=== PATIENT | male | born 1980 | race African-American/Black ===

== ENCOUNTER 2020-02-17 07:00 | Emergency (ER) | payer OTHER ==
--- NOTE | 2020-02-17 07:23 | ER Document Report ---
ED General - General Chief Complaint: Cough Stated Complaint: COUGH Time Seen by Provider: 02/17/20 07:19 Notes: 39-year-old male presents to the emergency department history of cough and fatigue over the past 2-1/2 weeks. He has recently developed diarrhea, loss of taste and smell, worsening body aches and pains. He is a [employer] driver, states that he may have come in contact with someone driving in [place], [place] a few weeks ago. He has no known history of exposure to positive COVID patient. He has had 2 episodes of inability to control diarrhea, awakened with incontinence of stool. Now presents to the emergency department for further evaluation and treatment of his symptom complex. Review of Systems - Review of Systems Notes: Constitutional: Negative for fever. HENT: Negative for sore throat. Eyes: Negative for visual changes. Cardiovascular: Negative for chest pain. Respiratory: + Cough, + shortness of breath . Gastrointestinal: + Diarrhea. Genitourinary: Negative for dysuria. Musculoskeletal: Negative for back pain. Skin: Negative for rash. Neurological: Negative for headaches, weakness or numbness. 10 point ROS negative except as marked above and in HPI. Physical Exam - Vital signs Vitals: Temp 97.6 F 02/17/20 07:13 - Notes Notes: PHYSICAL EXAMINATION: Physical Exam: General: Well-nourished well-developed 39-year-old man in no acute distress HEENT: [place]/AT, pupils equal round and reactive to light, MM moist,nares clear, oropharynx clear, airway patent Neck: supple, no adenopathy, no masses. Good range of motion Lungs: clear, no wheezing, no rales no rhonchi CVS: Regular rate and rhythm no murmur gallop or rub Abdomen: Soft, active, nontender, no masses, no hepatosplenomegaly Ext: No edema, clubbing or cyanosis. Neuro: Alert and responsive, moving all 4 extremities on command, cranial nerves intact, no focal findings Skin: Intact no open lesions, no rash PSYCH: Normal mood, normal affect. Course - Re-evaluation Re-evalutation: 02/17/20 10:48 Patient was seen and evaluated, he is also concerned about possible coronavirus infection. Positive diarrhea and cough with associated fatigue. 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 Chest x-ray, lab findings are all normal. His influenza and strep tests are negative. Patient presents with l cough, diarrhea and body aches. Evaluation for influenza and strep are negative, urinalysis was also noted to be negative. Given this presentation, coronavirus screening test is being performed. I have instructed the patient that he will need to self isolate until the received a report of the test results. The patient acknowledges that he has been tested for COVID-19, and will self isolate at home until he receives results. He is instructed to avoid anti-inflammatory medications. May use Tylenol for fever, a ches and pains. He is also instructed to return to the hospital if his symptoms are worsening or development of shortness of breath. - Vital Signs Vital signs: Temp Pulse Resp BP Pulse Ox 97.6 F 79 16 115/78 98 02/17/20 07:22 02/17/20 07:22 02/17/20 10:01 02/17/20 10:01 02/17/20 10:01 - Laboratory Result Diagrams: 02/17/20 07:06 02/17/20 07:06 Laboratory results interpreted by me: 02/17/20 02/17/20 07:06 09:40 WBC 3.8 L Lymph % (Auto) 57.5 H Absolute Neuts (auto) 1.3 L Seg Neutrophils % 34.0 L Urine Urobilinogen 2.0 H - Diagnostic Test Radiology reviewed: Image reviewed, Reports reviewed - Chest x-ray: No acute infiltrate or effusion. - EKG Interpretation by Ar EKG shows normal: Sinus rhythm - 77, no acute ST or T wave abnormalities seen: Interpretation normal electrocardiogram. Discharge - Discharge Clinical Impression: Suspected 2019 novel coronavirus infection Condition: Good Disposition: HOME, SELF-CARE Additional Instructions: You were seen with fever and upper respiratory symptoms.Testing for influenza and strep were negative, chest x-ray is clear. Given the pandemic and coronavirus concerns, your were made a person of interest and a swab was collected and will be sent for COVID-19 evaluation. You will need to self quarantine until you get the results. Avoid anti-inflammatory medications, you may use Tylenol for fever, aches and pains. Please return to the hospital if her symptoms are worsening or development of shortness of breath. HOME CARE INSTRUCTIONS & INFORMATION: Thank you for choosing us for your medical needs. We hope you're satisfied with the care you received. After you leave, you must properly care for your problem and, at the same time, observe its progress. Any condition can change. Some illnesses can change rapidly over hours or days. If your condition worsens, return to the Emergency Department or see your physician promptly. ABOUT YOUR X-RAYS AND EKG'S: If you had an EKG or X-rays taken, they have been read by the Emergency Physician. The X-rays and EKG's will also be read by a Radiologist or Business Transformation Consultant within 24 hours. If discrepancies are noted, you will be notified by telephone. Please be certain the ED has a correct telephone number & address where you can be reached. Also, realize that some fractures or abnormalities do not show up on initial X-rays. If your symptoms continue, see your physician. ABOUT YOUR LABORATORY TEST: If you had laboratory tests, the results have been reviewed by the Emergency Physician. Some test results (for example cultures) may not be available for several days. You will be contacted if any test result shows you need additional treatment. Please be certain the ED has a correct [facility] number and address where you can be reached. ABOUT YOUR MEDICATIONS: You will receive instructions on how to take your medicine on the prescription label you receive. Additional information may be provided by the Pharmacy. If you have questions afterwards, call the ED for clarification or further instructions. Some prescribed medications may cause drowsiness. Do not perform tasks such as driving a car or operating machinery without consulting your Pharmacist. If you feel you need a refill of pain medication, your condition will need re-evaluation. Please do not call for a refill of any medication. ABOUT YOUR SIGNATURE: Signature of this document acknowledges to followin. Understanding that you received emergency treatment and that you may be released before al medical problems are known or treated. Please be certain the ED has a correct phone number & address where you can be reached. 2. Acknowledgement that you will arrange for follow-up care as recommended. 3. Authorization for the Emergency Physician to provide information to your follow-up Physician in order to maximize your care. AT ANY TIME, IF YOUR SYMPTOMS CHANGE SIGNIFICANTLY OR WORSEN OR YOU DEVELOP NEW SYMPTOMS, RETURN TO THE EMERGENCY DEPARTMENT IMMEDIATELY FOR RE-EVALUATION. OUR GOAL IS TO PROVIDE EXCELLENT MEDICAL CARE! WE HOPE THAT WE HAVE MET YOUR EXPECTATIONS DURING YOUR EMERGENCY DEPARTMENT VISIT AND THAT YOU FEEL YOU HAVE RECEIVED EXCELLENT CARE!
[2020-02-17 07:41] LABS: ABSOLUTE EOSINOPHILS # (AUTO) 0.1 10^3/uL (0.0-0.6); ABSOLUTE LYMPHOCYTES (AUTO) 2.2 10^3/uL (0.5-4.7); ABSOLUTE MONOCYTES (AUTO) 0.2 10^3/uL (0.1-1.4); ABSOLUTE NEUT (AUTO) 1.3 10^3/uL (1.7-8.2); BASOPHILS % (AUTO) 0.5 % (0-2); EOSINOPHILS % (AUTO) 1.8 % (0-6); HEMATOCRIT 46.5 % (37.9-51.0); HEMOGLOBIN 16.6 g/dL (13.5-17.0); LYMPHOCYTES % (AUTO) 57.5 % (13-45); MEAN CORPUSCULAR HEMOGLOBIN 30.6 pg (27.0-33.4); MEAN CORPUSCULAR HGB CONC 35.7 g/dL (32.0-36.0); MEAN CORPUSCULAR VOLUME 86 fl (80-97); MONOCYTES % (AUTO) 6.2 % (3-13); PLATELET COUNT 289 10^3/uL (150-450); RED BLOOD COUNT 5.44 10^6/uL (4.35-5.55); RED CELL DISTRIBUTION WIDTH 13.3 % (11.5-14.0); TOTAL CELLS COUNTED % (AUTO) 100 %; WHITE BLOOD COUNT 3.8 10^3/uL (4.0-10.5)
[2020-02-17 08:00] LABS: ALBUMIN 4.7 g/dL (3.5-5.0); ALKALINE PHOSPHATASE 79 U/L (38-126); ANION GAP 8 (5-19); ASPARTATE AMINO TRANSFERASE 32 U/L (17-59); BILIRUBIN,TOTAL 0.8 mg/dL (0.2-1.3); BLOOD UREA NITROGEN 16 mg/dL (7-20); CALCIUM 9.5 mg/dL (8.4-10.2); CARBON DIOXIDE 30 mmol/L (22-30); CHLORIDE 100 mmol/L (98-107); GLUCOSE 105 mg/dL (75-110); POTASSIUM 4.2 mmol/L (3.6-5.0); TOTAL PROTEIN 8.1 g/dL (6.3-8.2)
--- NOTE | 2020-02-17 08:02 | RADIOLOGY REPORT (SQ) ---
CHEST 1 VIEW on 02/17/2020 at 7:34 AM CLINICAL INDICATION: Cough, shortness of breath COMPARISON: None FINDINGS: The lungs are clear. Cardiac, hilar and mediastinal contours are within normal limits. Pulmonary vascularity is within normal limits. No bony abnormality is noted. IMPRESSION: No active disease.
[2020-02-17 10:05] LABS: APPEARANCE,URINE CLEAR; BILIRUBIN,URINE NEGATIVE (NEGATIVE); COLOR,URINE YELLOW; GLUCOSE, URINE NEGATIVE (NEGATIVE); KETONES,URINE NEGATIVE (NEGATIVE); PROTEIN,URINE NEGATIVE (NEGATIVE); URINE SPECIFIC GRAVITY 1.016
[2020-02-17 10:19] LABS: A TYPE INFLUENZA AG NEGATIVE (NEGATIVE); B INFLUENZA AG NEGATIVE (NEGATIVE)
[2020-02-17 11:01] VITALS: BP 115/78
--- NOTE | 2020-02-18 00:02 | EKG REPORT ---
SEVERITY:- NORMAL ECG - SINUS RHYTHM : Confirmed by: Fantasma East 18-Feb-2020 00:01:32
== END 2020-02-17 11:42 | disposition home or self-care (01) ==
LOC: ER 07:00
DX: R05 Cough (principal); R53.83 Other fatigue; R19.7 Diarrhea, unspecified; R43.8 Other disturbances of smell and taste; M79.10 Myalgia, unspecified site; R15.9 Full incontinence of feces; R06.02 Shortness of breath; Z20.828 Contact with and (suspected) exposure to other viral communicable diseases
CPT/HCPCS: 36415; 71045; 80053; 81001; 85025; 87070; 87635; 87804; 87880; 93005; 93010; 99284

== ENCOUNTER 2020-07-28 09:34 | Emergency (ER) | payer OTHER, MEDICAID ==
[2020-07-28] MEDS ORDERED: PREDNISONE 20 MG TABLET PO ONE (10:53)
[2020-07-28] MEDS ORDERED: LOPERAMIDE HCL 2 MG CAPSULE PO ONE (10:53)
[2020-07-28] MEDS ORDERED: BENZONATATE 100 MG CAPSULE PO ONE (10:53)
[2020-07-28 11:41] LABS: A TYPE INFLUENZA AG NEGATIVE (NEGATIVE); B INFLUENZA AG NEGATIVE (NEGATIVE)
--- NOTE | 2020-07-28 11:52 | RADIOLOGY REPORT (SQ) ---
EXAM DESCRIPTION: CHEST SINGLE VIEW IMAGES COMPLETED DATE/TIME: 07/28/2020 11:45 am REASON FOR STUDY: fever/cough COMPARISON: 02/17/2020 EXAM PARAMETERS: NUMBER OF VIEWS: One view. TECHNIQUE: Single frontal radiographic view of the chest acquired. RADIATION DOSE: NA LIMITATIONS: None. FINDINGS: LUNGS AND PLEURA: No opacities, masses or pneumothorax. No pleural effusion. MEDIASTINUM AND HILAR STRUCTURES: No masses. Contour normal. HEART AND VASCULAR STRUCTURES: Heart normal in size. Normal vasculature. BONES: No acute findings. HARDWARE: None in the chest. OTHER: No other significant finding. IMPRESSION: NO ACUTE RADIOGRAPHIC FINDING IN THE CHEST. TECHNICAL DOCUMENTATION: JOB ID: [id number] 2010 [employer]- All Rights Reserved Reading location - IP/workstation name: [email or web address]
--- NOTE | 2020-07-28 12:17 | ER Document Report ---
ED General - General Chief Complaint: Flu Symptoms Stated Complaint: VOMITING,DIARRHEA,SORE THROAT Primary Care Provider: [facility] [Provider Group] - Follow up as needed Mode of Arrival: Ambulatory Information source: Patient Notes: 39-year-old male patient presents emergency department multiple complaints today. Patient reports sore throat, runny nose, cough, fevers, bloody cough, diarrhea, vomiting and headache. Patient reports he thinks he has COVID-19. He reports 1 week ago he went to an event and believes he got COVID-19 from it. He does report multiple contacts of his who have tested positive for COVID-19 as well. He reports that he does have a history of asthma and diabetes. He is compliant with his medication. - Related Data Allergies/Adverse Reactions: No Known Allergies Allergy (Verified 07/28/20 10:35) Home Medications: insulin, tylenol Past Medical History - General Information source: Patient - Social History Smoking Status: Never Smoker Frequency of alcohol use: None Drug Abuse: None Family History: Reviewed & Not Pertinent Endocrine Medical History: Reports: Hx Diabetes Mellitus Type 1 Review of Systems - Review of Systems Constitutional: See HPI EENT: See HPI Cardiovascular: See HPI Respiratory: See HPI Gastrointestinal: See HPI Genitourinary: No symptoms reported Male Genitourinary: No symptoms reported Musculoskeletal: No symptoms reported Skin: No symptoms reported Hematologic/Lymphatic: No symptoms reported Physical Exam - Vital signs Vitals: Temp Pulse Resp BP Pulse Ox 97.9 F 74 16 137/97 H 98 07/28/20 09:42 07/28/20 09:42 07/28/20 09:42 07/28/20 09:42 07/28/20 09:42 - Notes Notes: PHYSICAL EXAMINATION: GENERAL: Well-appearing, well-nourished and in no acute distress. HEAD: Atraumatic, normocephalic. EYES: Pupils equal round and reactive to light, extraocular movements intact, sclera anicteric, conjunctiva are normal. ENT: Nares patent, oropharynx clear without exudates. Moist mucous membranes. NECK: Normal range of motion, supple without lymphadenopathy LUNGS: Breath sounds clear to auscultation bilaterally and equal. No wheezes rales or rhonchi. HEART: Regular rate and rhythm without murmurs ABDOMEN: Soft, nontender, nondistended abdomen. No guarding, no rebound. No masses appreciated. Musculoskeletal: Normal range of motion, no pitting or edema. No cyanosis. NEUROLOGICAL: Cranial nerves grossly intact. Normal speech, normal gait. Normal sensory, motor exams PSYCH: Normal mood, normal affect. SKIN: Warm, Dry, normal turgor, no rashes or lesions noted. Course - Re-evaluation Re-evalutation: Patient appears well, nontoxic, vital signs reviewed and are within normal limits. Patient is well-appearing. His influenza, rapid strep and chest x-ray were unremarkable. COVID-19 swab pending. Patient will be discharged with medications to help with his symptoms. Patient verbalizes understanding and agreement with this plan. - Vital Signs Vital signs: Temp Pulse Resp BP Pulse Ox 97.8 F 67 18 131/96 H 98 07/28/20 12:25 07/28/20 12:25 07/28/20 12:25 07/28/20 12:25 07/28/20 12:25 Discharge - Discharge Clinical Impression: Encounter for laboratory testing for COVID-19 virus, Viral illness Condition: Stable Disposition: HOME, SELF-CARE Additional Instructions: Your chest x-ray was clear. No evidence of pneumonia. Flu and rapid strep are also negative. Your COVID-19 test is pending. Please self quarantine until you have received your results this is typically taking 2 to 3 days. If you were prescribed medications during today's visit please take them exactly as prescribed. Push fluids. Get plenty of rest. Tylenol or Motrin for fever and body aches. Good handwashing and stay away from others. Return to the emergency department with any new or worsening symptoms such as difficulty breathing, or any other worsening symptoms. Prescriptions: Loperamide HCl [Imodium 2 mg Capsule] 2 mg PO Q4HP PRN #21 cap PRN Reason: Benzonatate [Tessalon Perles 100 mg Capsule] 200 mg PO Q8HP PRN #40 capsule PRN Reason: Prednisone [Deltasone 20 mg Tablet] 3 tab PO DAILY 5 Days #15 tablet Forms: Return to Work Referrals: [facility] [Provider Group] - Follow up as needed
[2020-07-28 12:26] VITALS: BP 131/96
== END 2020-07-28 12:35 | disposition home or self-care (01) ==
LOC: ER 09:34
DX: B34.9 Viral infection, unspecified (principal); J02.9 Acute pharyngitis, unspecified; R09.89 Other specified symptoms and signs involving the circulatory and respiratory systems; R04.2 Hemoptysis; R19.7 Diarrhea, unspecified; R11.0 Nausea; J45.909 Unspecified asthma, uncomplicated; E10.9 Type 1 diabetes mellitus without complications; Z79.4 Long term (current) use of insulin; Z79.899 Other long term (current) drug therapy; Z20.828 Contact with and (suspected) exposure to other viral communicable diseases
CPT/HCPCS: 99284; 87070; 87880; 87635; 87804; 71045; J7512; C9803

== ENCOUNTER 2020-10-14 08:24 | Emergency (ER) | payer SELFPAY ==
--- NOTE | 2020-10-14 10:20 | RADIOLOGY REPORT (SQ) ---
EXAM DESCRIPTION: CHEST SINGLE VIEW<Procedure Description>CHEST SINGLE VIEW IMAGES COMPLETED DATE/TIME: 10/14/2020 10:04 am<Completed Time>10/14/2020 10:04 am REASON FOR STUDY: cough<Reason For Exam>cough <ADM DX> COMPARISON: 07/28/2020 NUMBER OF VIEWS: One. TECHNIQUE: Single frontal radiographic view of the chest acquired. RADIATION DOSE: <RADIATION DOSE> LIMITATIONS: Partial expiratory lung volumes. FINDINGS: LUNGS AND PLEURA: No pneumothorax. Partial expiratory lung volumes with bronchovascular crowding in the lung bases. No consolidation or pleural effusion. MEDIASTINUM AND HILAR STRUCTURES: Stable. HEART AND VASCULAR STRUCTURES: Stable. BONES: No acute findings. HARDWARE: None in the chest. OTHER: No other significant findings. IMPRESSION: Partial expiratory lung volumes with bronchovascular crowding in the lung bases. No cons olidation or pleural effusion. TECHNICAL DOCUMENTATION: JOB ID: [id number]<Job ID>[id number] 2010 [employer]- All Rights Reserved Reading location - IP/workstation name: [email or web address]
[2020-10-14] MEDS ORDERED: ONDANSETRON 4 MG TAB.RAPDIS PO ONE (10:52)
[2020-10-14] MEDS ORDERED: PREDNISONE 20 MG TABLET PO ONE (10:52)
[2020-10-14] MEDS ORDERED: IPRATROPIUM/ALBUTEROL 0.5-2.5 MG/3 ML AMPUL NEB ONE (10:52)
--- NOTE | 2020-10-14 11:25 | ER Document Report ---
Entered by KRISTY CHARLES SCRIBE 10/14/20 1052 Acting as scribe for:MILAGRO AYOUB MD ED General - General Chief Complaint: Flu Symptoms Stated Complaint: SHORTNESS OF BREATH, COUGH, DIARRHEA Time Seen by Provider: 10/14/20 10:38 Primary Care Provider: ELIZABETH,NELIDA [Primary Care Provider] - Follow up as needed Mode of Arrival: Ambulatory Information source: Patient Notes: This 39-year-old male patient with asthma presents to the emergency department today with complaints of a 1 week history of nausea, vomiting, diarrhea, wheezing, fevers, and chills. Patient reports that he "went on a tinder date and kissed her on the mouth" and he is now worried about possible COVID-19 infection. He reports that this person had no symptoms at that time but has since developed similar symptoms. Patient reports he had similar symptoms on July 28 and was tested for COVID and it was negative. Patient reports the only difference between now and his symptoms in July is that he has altered taste now. - Related Data Allergies/Adverse Reactions: No Known Allergies Allergy (Verified 10/14/20 09:49) Past Medical History - General Information source: Patient - Social History Smoking Status: Never Smoker Cigarette use (# per day): No Frequency of alcohol use: None Drug Abuse: None Lives with: Family Family History: Reviewed & Not Pertinent Patient has homicidal ideation: No Pulmonary Medical History: Reports: Hx Asthma Endocrine Medical History: Reports: Hx Diabetes Mellitus Type 1 Surgical Hx: Negative Review of Systems - Review of Systems Constitutional: See HPI, Chills, Fever EENT: No symptoms reported Cardiovascular: No symptoms reported Respiratory: See HPI, Wheezing Gastrointestinal: See HPI, Diarrhea, Vomiting Genitourinary: No symptoms reported Male Genitourinary: No symptoms reported Musculoskeletal: No symptoms reported Skin: No symptoms reported Hematologic/Lymphatic: No symptoms reported Neurological/Psychological: No symptoms reported -: Yes All other systems reviewed and negative Physical Exam - Vital signs Vitals: Temp Pulse Resp BP Pulse Ox 98.1 F 69 14 136/84 H 98 10/14/20 08:30 10/14/20 08:30 10/14/20 08:30 10/14/20 08:30 10/14/20 08:30 - Notes Notes: Physical Exam: General: Alert, appears well. HEENT: Normocephalic. Atraumatic. PERRL. Extraocular movements intact. Oropharynx clear. Mild posterior oropharynx erythema. Neck: Supple. Non-tender. Respiratory: No respiratory distress. Wheezing, dry nonproductive cough. Cardiovascular: Regular rate and rhythm. Abdominal: Normal Inspection. Non-tender. No distension. Normal Bowel Sounds. Back: No gross abnormalities. Extremities: Moves all four extremities. Upper extremities: Normal inspection. Normal ROM. Lower extremities: Normal inspection. No edema. Normal ROM. Neurological: Normal cognition. AAOx4. Normal speech. Psychological: Normal affect. Normal Mood. Skin: Warm. Dry. Normal color. Course - Re-evaluation Re-evalutation: 10/14/20 12:11 The patient was evaluated during the global COVID-19 pandemic and that diagnosis was suspected/considered upon their initial presentation. Their evaluation, treatment and testing was consistent with current guidelines for patients who present with complaints or symptoms that may be related to COVID-19. 10/14/20 12:11 Patient's wheezes improved with the nebulizer treatment. - Vital Signs Vital signs: Temp Pulse Resp BP Pulse Ox 98.1 F 69 14 136/84 H 98 10/14/20 08:30 10/14/20 08:30 10/14/20 08:30 10/14/20 08:30 10/14/20 08:30 - Laboratory Results Result Diagrams: 10/14/20 11:06 10/14/20 11:06 Laboratory Results Interpreted: 10/14/20 10/14/20 11:06 11:06 WBC 3.6 L RBC 5.67 H Lymph % (Auto) 55.5 H Absolute Neuts (auto) 1.3 L Seg Neutrophils % 37.0 L Carbon Dioxide 32 H Total Protein 8.7 H Critical Laboratory Results Reviewed: No Critical Results - Radiology Results Critical Radiology Results Reviewed: No Critical Results Discharge - Discharge Clinical Impression: Viral upper respiratory tract infection with cough, Bronchitis, acute, with bronchospasm, Encounter for laboratory testing for COVID-19 virus Condition: Stable Disposition: HOME, SELF-CARE Instructions: COVID-19 Guidance for Persons Under Investigation Additional Instructions: Bronchitis with Bronchospasm (Wheezing) You have bronchitis with bronchospasm (wheezing). Sometimes people develop wheezing with a chest cold. This occurs either because of an underlying tendency toward asthma or because the virus itself irritates the bronchial tubes. This irritation causes cough, shortness of breath, and wheezing. Emergency treatment of bronchospasm may include adrenaline shots or bronchodilator aerosol. You may feel lightheaded and have a rapid pulse for an hour or two. Rest and get plenty of fluids. At home, we'll treat you with a bronchodilator inhaler. Corticosteroids may be required for some patients. Until you recover, avoid chemical fumes, dusts, pollens, and exercising in very cold or dry air. If you smoke, stop now! Most cases of bronchitis get better without antibiotics. We prescribe antibiotics when we believe bacteria are damaging your airways, or if there's high risk the bronchitis will worsen into pneumonia. Increase your fluid intake. A cool mist humidifier may make your lungs more comfortable. An expectorant (cough medicine that loosens phlegm) can help. Repeated episodes of bronchitis and bronchospasm may result in lung damage -- for example, chronic bronchitis, recurrent pneumonias, or emphysema. If you develop a fever, increased wheezing, chest pain, or severe shortness of breath, you should contact the doctor immediately. Start the prednisone tomorrow--you received today's dose here in the emergency room. Use inhaler as prescribed for wheezing as needed. Try Robitussin-DM or Delsym DM to help suppress your cough. Drink plenty fluids get plenty of rest. Self isolate until you get results of the Covid test. Follow-up with a local primary care provider if not improving. RETURN TO THE EMERGENCY ROOM IF ANY NEW OR WORSENING SYMPTOMS. Prescriptions: Prednisone [Deltasone 10 mg Tablet] 10 mg PO ASDIR PRN #21 tablet PRN Reason: Albuterol Sulfate [Proair Hfa Inhalation Aerosol 8.5 gm Mdi] 2 puff IH ASDIR PRN #1 mdi PRN Reason: Referrals: [facility]AL[facility],NO [Primary Care Provider] - Follow up as needed I personally performed the services described in the documentation, reviewed and edited the documentation which was dictated to the scribe in my presence, and it accurately records my words and actions.
[2020-10-14 11:30] LABS: ABSOLUTE MONOCYTES (AUTO) 0.2 10^3/uL (0.1-1.4); ABSOLUTE NEUT (AUTO) 1.3 10^3/uL (1.7-8.2); BASOPHILS % (AUTO) 0.7 % (0-2); EOSINOPHILS % (AUTO) 1.1 % (0-6); HEMATOCRIT 48.8 % (37.9-51.0); HEMOGLOBIN 16.7 g/dL (13.5-17.0); LYMPHOCYTES % (AUTO) 55.5 % (13-45); MEAN CORPUSCULAR HEMOGLOBIN 29.5 pg (27.0-33.4); MEAN CORPUSCULAR HGB CONC 34.3 g/dL (32.0-36.0); MEAN CORPUSCULAR VOLUME 86 fl (80-97); MONOCYTES % (AUTO) 5.7 % (3-13); PLATELET COUNT 316 10^3/uL (150-450); RED BLOOD COUNT 5.67 10^6/uL (4.35-5.55); RED CELL DISTRIBUTION WIDTH 13.1 % (11.5-14.0); TOTAL CELLS COUNTED % (AUTO) 100 %; WHITE BLOOD COUNT 3.6 10^3/uL (4.0-10.5)
[2020-10-14 11:47] LABS: ALBUMIN 4.7 g/dL (3.5-5.0); ALKALINE PHOSPHATASE 76 U/L (38-126); ANION GAP 6 (5-19); ASPARTATE AMINO TRANSFERASE 47 U/L (17-59); BILIRUBIN,DIRECT 0.1 mg/dL (0.0-0.4); BILIRUBIN,TOTAL 0.8 mg/dL (0.2-1.3); BLOOD UREA NITROGEN 16 mg/dL (7-20); CALCIUM 9.9 mg/dL (8.4-10.2); CARBON DIOXIDE 32 mmol/L (22-30); CHLORIDE 101 mmol/L (98-107); GLUCOSE 102 mg/dL (75-110); POTASSIUM 4.4 mmol/L (3.6-5.0); TOTAL PROTEIN 8.7 g/dL (6.3-8.2)
[2020-10-14 12:27] VITALS: BP 131/88
== END 2020-10-14 12:30 | disposition home or self-care (01) ==
LOC: ER 08:24
DX: J06.9 Acute upper respiratory infection, unspecified (principal); J20.9 Acute bronchitis, unspecified; R06.02 Shortness of breath; R05 Cough; R19.7 Diarrhea, unspecified; R11.2 Nausea with vomiting, unspecified; R50.9 Fever, unspecified; Z20.828 Contact with and (suspected) exposure to other viral communicable diseases; J45.909 Unspecified asthma, uncomplicated; E10.9 Type 1 diabetes mellitus without complications
CPT/HCPCS: 94640; 99284; 36415; 85025; 87635; 80053; 71045; S0119; J7512; C9803